=== PATIENT | male | born 1985 | race Caucasian/White ===

== ENCOUNTER 2022-05-16 09:38 | Emergency (ER) | payer BC, SELFPAY ==
[2022-05-16 10:03] VITALS: BP 145/94; PULSE 94; RESP 18; TEMP 36.6; O2SAT 99
--- NOTE | 2022-05-16 10:16 | ED_ITS ---
HPI - Male Genitourinary General Chief complaint: Urogenital-Male Stated complaint: scrotal lump Time Seen by Provider: 05/16/22 10:08 History of Present Illness HPI Narrative: Patient is a 36-year-old male who presents ER with discomfort to the right of his scrotum. Had the discomfort yesterday and then today noticed that he had some redness with a lump. No abscess or drainage that he is noticed. No fevers or chills or sweats. He is not diabetic. Does not believe he has been exposed to any irritants. Related Data Allergies Allergy/AdvReac Type Severity Reaction Status Date / Time No Known Allergies Allergy Verified 05/16/22 10:17 Review of Systems Constitutional: Constitutional: Denies chills and Denies fever(s) Genitourinary: Genitourinary: Denies dysuria, Denies testicular pain and Denies urinary frequency Comments: Scrotal irritation Integumentary/Breasts: Skin/Breast: Reports erythema, Reports rash and Denies skin ulcer PMFSH Past Medical History Medical History (Updated 05/16/22 @ 10:21 by Jose Mcconnell MD) Healthy adult male Surgical History Surgical History (Updated 05/16/22 @ 10:18 by Jose Mcconnell MD) No history of previous surgery Exam Narrative: GENERAL: Well-appearing, well-nourished, and in no acute distress. HEAD: Normocephalic, atraumatic. : Normal-appearing penile shaft and glans. Scrotum with small area of redness irritation to most inferior aspect on the right side, 1.5 cm in diameter. There is some brown spots that give the appearance of irritation to the hair follicle. No fluctuance or drainage. EXTREMITIES: Normal range of motion. No edema. SKIN: Warm, dry, no rash. NEURO: Alert and oriented x3. PSYCH: Normal mood and affect. Course Course Emergency Course: Developing cellulitis versus contact dermatitis. Recommend oral antibiotics and topical cortisone cream. Follow-up with PCP. Vital Signs Vital signs: Vital Signs Temperature 97.9 F 05/16/22 10:03 Pulse Rate 94 05/16/22 10:03 Respiratory Rate 18 05/16/22 10:03 Blood Pressure 145/94 H 05/16/22 10:03 Pulse Oximetry 99 05/16/22 10:03 Oxygen Delivery Room Air 05/16/22 10:03 Temperature 97.9 F 05/16/22 10:03 Pulse Rate 94 05/16/22 10:03 Respiratory Rate 18 05/16/22 10:03 Blood Pressure 145/94 H 05/16/22 10:03 Pulse Oximetry 99 05/16/22 10:03 Oxygen Delivery Room Air 05/16/22 10:03 Discharge Plan Discharge Clinical Impression: Cellulitis Patient Disposition: Home, Self-Care Condition: Stable Instructions: Antibiotic Form, Cellulitis (ED) Additional Instructions: Return to the ER if you have worsening redness, you develop fever over 100.4 ?F, you have drainage from the area of irritation, you have additional concerns. You may also try some topical cortisone cream for itching or some [employer] powde r. Prescriptions: New cefuroxime axetil 500 mg tablet 500 mg PO BID Qty: 14 0RF Follow-up/Referrals: PHYSICIAN,INTERMOD[facility] C[facility]ER SERVICE [Primary Care Provider] - Rhett Ruelas MD [Physician] - 1 Week
== END 2022-05-16 10:29 | disposition home or self-care (01) ==
LOC: ANHED 10:26
PROVIDERS: Emergency Provider Emergency Medicine
DX: N49.2 Inflammatory disorders of scrotum (principal)
CPT/HCPCS: 99283